=== PATIENT | female | born 1950 | race Caucasian/White ===

== ENCOUNTER 2016-10-23 16:10 | Emergency (ER) | payer MEDICARE, MEDICAID ==
[2016-10-23] MEDS ORDERED: Aspirin Low Dose CHEW TAB* 81 MG PO ONE (16:19)
--- NOTE | 2016-10-23 16:50 | RAD ---
INDICATION: Chest pain since radiating to the jaw and LEFT neck with worsening. Nausea today. Syncopal episode without fall. Cardiovascular disease and respiratory disease. COMPARISON: February 18, 2015 TECHNIQUE: Dual energy PA and routine lateral views of the chest were obtained. REPORT: Mild T7 compression fracture is unchanged compared with a CT from May 09, 2014. No new thoracic fracture evident. Clear lungs and pleural spaces. Negative for pneumothorax. Negative for cardiomegaly. LEFT anterior descending coronary artery stent. Unremarkable central pulmonary vasculature and mediastinal contours. IMPRESSION: No evidence for acute intrathoracic disease.
[2016-10-23 17:03] LABS: Hematocrit 44 % (35-47); Hemoglobin 14.6 g/dl (12.0-16.0); Mean Corpuscular HGB Conc 33 g/dl (31-36); Mean Corpuscular Hemoglobin 32 pg (27-31); Mean Corpuscular Volume 96 fL (80-97); Mean Platelet Volume 8 um3 (7.4-10.4); Red Blood Count 4.57 10^6/ul (4.0-5.4); Red Cell Distribution Width 13 % (10.5-15); White Blood Count 8.8 10^3/ul (3.5-10.8)
[2016-10-23 17:19] LABS: Albumin 4.2 g/dL (3.2-5.2); BUN/Creatinine Ratio 8.9 (8-20); Calcium 9.5 mg/dL (8.6-10.3); EGFR African American 81.1 (>60); Globulin 2.9 g/dL (2-4); Magnesium 1.9 mg/dL (1.9-2.7); Potassium 3.5 mmol/L (3.5-5.0); Total Bilirubin 0.4 mg/dL (0.2-1.0); Total Protein 7.1 g/dL (6.4-8.9)
[2016-10-23 17:38] LABS: TSH (Thyroid Stimulating Horm) 2.3 mcIU/mL (0.34-5.60)
--- NOTE | 2016-10-23 21:27 | ED ---
Cory Patrick Karl, scribed for Royce Hardy MD on 10/23/16 at 1639 . HPI Chest Pain - HPI Summary HPI Summary: 66 y/o F ALTHEA presents c/o intermittent midsternal CP radiating to her back that began 2 days ago and has since worsened. Pt described the pain as a pressure pain. Pt stated that she felt the pressure pain increase and took NTG which helped alleviate her pain, but shortly after, she started sweating and lost consciousness. Pt stated that when she woke up she called and ambulance. Hx : 2 cardiac stents, HLD, CAD. - History of Current Complaint Time Seen by Provider: 10/23/16 16:11 Hx Obtained From: Patient Onset/Duration: Started Days Ago - 2, Atraumatic, Worse Since Timing: Intermittent Initial Severity: Moderate Current Severity: None Chest Pain Location: Mid Sternal Chest Pain Radiates: Yes Chest Pain Radiates To:: Back Character: Pressure/Squeezing Aggravating Factor(s): Nothing Alleviating Factor(s): NTG 123, EMS Tx Associated Signs and Symptoms: Positive: Chest Pain, Syncope, Diaphoresis - Allergy/Home Medications Allergies/Adverse Reactions: Allergies Allergy/AdvReac Type Severity Reaction Status Date / Time Hydrocodone Allergy Severe Rash Verified 07/14/16 10:39 Hydromorphone [From Dilaudid] Allergy Severe Rash Verified 07/14/16 10:39 Statins Allergy Severe Rash Verified 07/14/16 10:39 CI Pigment Blue 63 Allergy Intermediate See Comment Verified 07/14/16 10:39 [From Cymbalta] Duloxetine [From Cymbalta] Allergy Intermediate See Comment Verified 07/14/16 10 :39 Fluoxetine [From Prozac] Allergy Intermediate Itching Verified 07/14/16 10:39 Oxycodone Allergy Intermediate Rash And Verified 07/14/16 10:39 Itching Lactose Intolerance (GI) Allergy GI Upset Verified 07/14/16 10:39 Paroxetine [From Paxil] Allergy Hives Verified 07/14/16 10:39 PMH/Surg Hx/FS Hx/Imm Hx Endocrine/Hematology History: Reports: Hx Thyroid Disease - hypothyroid Denies: Hx Diabetes Cardiovascular History: Reports: Hx Angina, Hx Coronary Artery Disease - 2 STENT IN LAD 2011, Hx Hypercholesterolemia, Hx Hypertension - ON MEDS PT. STATES CONTROLLED, Other Cardiovascular Problems/Disorders - CAD Respiratory History: Reports: Hx Asthma - ON INHALERS, Hx Sleep Apnea Denies: Hx Chronic Obstructive Pulmonary Disease (COPD) GI History: Reports: Hx Diverticulosis, Hx Gastroesophageal Reflux Disease - ON MEDS STATES DOESN'T HELP MUCH, Hx Irritable Bowel, Other GI Disorders - Hx diverticulitis Denies: Hx Ulcer History: Reports: Hx Kidney Stones - ONE TIME, Other Problems/Disorders - Hx frequent bladder infections Denies: Hx Renal Disease Musculoskeletal History: Reports: Hx Fibromyalgia, Other Musculoskeletal History - CRUSHED THORACIC VERTEBRAE- PER PT FIBROMAYALGIA Sensory History: Reports: Hx Cataracts - BILAT, Hx Contacts or Glasses - GLASSES Denies: Hx Hearing Aid Opthamlomology History: Reports: Hx Cataracts - BILAT, Hx Contacts or Glasses - GLASSES Neurological History: Reports: Hx Migraine - RARELY- ON TOPOMAX, Other Neuro Impairments/Disorders - fibromyalgia, BIPOLAR, PTSD, RECENT LYME DX Psychiatric History: Reports: Hx Anxiety, Hx Depression, Hx Post Traumatic Stress Disorder, Hx Bipolar Disorder - Surgical History Surgery Procedure, Year, and Place: tubal ligation 1978. CARDIAC STENT X 1 2011 [facility] [place]. cardiac stents X1 2010 [facility] Hx Anesthesia Reactions: No Infectious Disease History: Denies: Hx Clostridium Difficile, Hx Hepatitis, Hx Human Immunodeficiency Virus (HIV), Hx of Known/Suspected MRSA, Hx Shingles, Hx Tuberculosis, Hx Known/ Suspected VRE, Hx Known/Suspected VRSA, History Other Infectious Disease, Traveled Outside the [place] in Last 30 Days - Family History Known Family History: Positive: Cardiac Disease - mother, Diabetes - mother - Social History Alcohol Use: Rare Alcohol Amount: BEER X 3 YEAR Substance Use Type: Reports: Marijuana Substance Use Comment - Amount & Last Used: Once to twice per day Smoking Status (MU): Never Smoked Tobacco Have You Smoked in the Last Year: No Review of Systems Positive: Skin Diaphoresis Eyes: Negative ENT: Negative Positive: Chest Pain Respiratory: Negative Gastrointestinal: Negative Genitourinary: Negative Musculoskeletal: Negative Skin: Negative Positive: Syncope Psychological: Normal All Other Systems Reviewed And Are Negative: Yes Physical Exam - Summary Physical Exam Summary: VITAL SIGNS: Reviewed. GENERAL: Patient is an obese female who is lying comfortable in the stretcher. Patient is not in any acute respiratory distress. HEAD AND FACE: No signs of trauma. No ecchymosis, hematomas or skull depressions. No sinus tenderness. EYES: PERRLA, EOMI x 2, No injected conjunctiva, no nystagmus. EARS: Hearing grossly intact. Ear canals and tympanic membranes are within normal limits. MOUTH: Oropharynx within normal limits. NECK: Supple, trachea is midline, no adenopathy, no JVD, no carotid bruit, no c- spine tenderness, neck with full ROM. CHEST: Symmetric, no tenderness at palpation LUNGS: Clear to auscultation bilaterally. No wheezing or crackles. CVS: Regular rate and rhythm, S1 and S2 present, no murmurs or gallops appreciated. ABDOMEN: Soft, non-tender. No signs of distention. No rebound no guarding, and no masses palpated. Bowel sounds are normal. EXTREMITIES: FROM in all major joints, no edema, no cyanosis or clubbing. NEURO: Alert and oriented x 3. No acute neurological deficits. Speech is normal and follows commands. SKIN: Dry and warm Triage Information Reviewed: Yes Vital Signs On Initial Exam: Initial Vitals Temp Pulse Resp BP Pulse Ox 98.2 F 65 16 156/103 97 10/23/16 16:19 10/23/16 16:19 10/23/16 16:19 10/23/16 16:19 10/23/16 16:19 Vital Signs Reviewed: Yes Diagnostics - Vital Signs Vital Signs Temp Pulse Resp BP Pulse Ox 10/23/16 18:00 57 9 119/57 97 10/23/16 17:30 61 9 135/55 97 10/23/16 17:00 56 13 103/77 98 10/23/16 16:41 61 142/80 97 10/23/16 16:28 59 98 10/23/16 16:26 140/73 10/23/16 16:19 98.2 F 65 16 156/103 97 - Laboratory Lab Results: Lab Results 10/23/16 10/23/16 10/23/16 Range/Units 16:45 16:45 16:45 WBC 8.8 (3.5-10.8) 10^3/ul RBC 4.57 (4.0-5.4) 10^6/ul Hgb 14.6 (12.0-16.0) g/dl Hct 44 (35-47) % MCV 96 (80-97) fL MCH 32 H (27-31) pg MCHC 33 (31-36) g/dl RDW 13 (10.5-15) % Plt Count 276 (150-450) 10^3/ul MPV 8 (7.4-10.4) um3 Neut % (Auto) 59.1 (38-83) % Lymph % (Auto) 29.5 (25-47) % [place] % (Auto) 7.0 (1-9) % Eos % (Auto) 2.5 (0-6) % Baso % (Auto) 1.9 (0-2) % Absolute Neuts (auto) 5.2 (1.5-7.7) 10^3/ul Absolute Lymphs (auto) 2.6 (1.0-4.8) 10^3/ul Absolute Monos (auto) 0.6 (0-0.8) 10^3/ul Absolute Eos (auto) 0.2 (0-0.6) 10^3/ul Absolute Basos (auto) 0.2 (0-0.2) 10^3/ul Absolute Nucleated RBC 0 10^3/ul Nucleated RBC % 0 Sodium 137 (133-145) mmol/L Potassium 3.5 (3.5-5.0) mmol/L Chloride 109 (101-111) mmol/L Carbon Dioxide 23 (22-32) mmol/L Anion Gap 5 (2-11) mmol/L BUN 8 (6-24) mg/dL Creatinine 0.90 (0.51-0.95) mg/dL Est GFR ( Amer) 81.1 (>60) Est GFR (Non-Af Amer) 63.0 (>60) BUN/Creatinine Ratio 8.9 (8-20) Glucose 118 H (70-100) mg/dL Calcium 9.5 (8.6-10.3) mg/dL Magnesium 1.9 (1.9-2.7) mg/dL Total Bilirubin 0.40 (0.2-1.0) mg/dL AST 15 (13-39) U/L ALT 16 (7-52) U/L Alkaline Phosphatase 98 (34-104) U/L CK-MB (CK-2) 2.1 (0.6-6.3) ng/mL Troponin I 0.00 (<0.04) ng/mL B-Natriuretic Peptide 54 ( - 100) pg/mL Total Protein 7.1 (6.4-8.9) g/dL Albumin 4.2 (3.2-5.2) g/dL Globulin 2.9 (2-4) g/dL Albumin/Globulin Ratio 1.4 (1-3) TSH 2.30 (0.34-5.60) mcIU/mL Result Diagrams: 10/23/16 16:45 10/23/16 16:45 Lab Statement: Any lab studies that have been ordered have been reviewed, and results considered in the medical decision making process. - Radiology CXR Xray Interpretation: No Acute Changes Radiology Interpretation Completed By: Radiologist - IMPRESSION: No evidence for acute intrathoracic disease. - EKG 16:17 EKG Interpretation: NSR at 65 bpm, No ST elevations Chest Pain Course/Dx - Course Assessment/Plan: 66 y/o F BIBA presents c/o intermittent midsternal CP radiating to her back that began 2 days ago and has since worsened. Pt described the pain as a pressure pain. Pt stated that she felt the pressure pain increase and took NTG which helped alleviate her pain, but shortly after, she started sweating and lost consciousness. Pt stated that when she woke up she called and ambulance. Hx: 2 cardiac stents, HLD, CAD. Blood work WNL except for increased glucose of 118. Troponin #1: 0.00. Troponin #2 after 4 hours is: 0.01. Likely the source of the chest pain is not associated to an ACS. She is not tachycardic nor hypoxic therefore less likely a PE. Her chest pain not present since arrival therefore less likely a dissection. Chest pain is reproducible therefore likely chest wall pain. EKG shows a normal sinus rhythm w/o ST elevations. EKG is similar to a previous EKG done on 02/18/15. CXR impression: No acute pathology. I discussed all the findings and test results with the patient. Patient was instructed to return to the emergency room immediately if any of the symptoms return or worsens. Plan of care was discussed with the patient and understands and agrees. All questions were answered at patient satisfaction. There were no further complaints or concerns. P/E: Lungs: CTA B/L. Good air exchange. No wheezing or crackles heard. CVS: S1 and S2 present. No murmurs appreciated. Patient is alert and oriented x 3. Patient is hemodynamically stable. Patient will be discharged home with follow up PMD in the next 2-3 days - Chest Pain Differential Diagnosis/HQI/PQRI: ACS, Angina, CHF, Chest Wall, GI Disease, Lower Respiratory Infection - Diagnoses Provider Diagnoses: Atypical chest pain Discharge - Discharge Plan Condition: Stable Disposition: HOME Patient Education Materials: Chest Pain (ED) The documentation as recorded by the Cory benitez Karl accurately reflects the service I personally performed and the decisions made by Antony cast Walter, MD.
[2016-10-23 21:32] VITALS: BP 118/60
== END 2016-10-23 21:43 | disposition home or self-care (01) ==
LOC: ED 16:10
DX: R07.89 Other chest pain (principal); R55 Syncope and collapse; R61 Generalized hyperhidrosis
CPT/HCPCS: 36415; 71020; 80053; 82553; 83735; 83880; 84443; 84484; 85025; 93005; 99285; A9270-GY

== ENCOUNTER 2017-05-22 12:05 | Emergency (ER) | payer MEDICARE, MEDICAID ==
[2017-05-22] MEDS ORDERED: Cyclobenzaprine TAB* 10 MG PO ONE (14:17)
[2017-05-22] MEDS ORDERED: Morphine TAB Extended Release (*) 30 MG TAB.ER PO ONE ×2 (14:18→16:00)
[2017-05-22 15:10] LABS: Hematocrit 41 % (35-47); Hemoglobin 14.1 g/dl (12.0-16.0); Mean Corpuscular HGB Conc 34 g/dl (31-36); Mean Corpuscular Hemoglobin 33 pg (27-31); Mean Corpuscular Volume 95 fL (80-97); Mean Platelet Volume 7 um3 (7.4-10.4); Red Blood Count 4.33 10^6/ul (4.0-5.4); Red Cell Distribution Width 13 % (10.5-15); White Blood Count 7.4 10^3/ul (3.5-10.8)
[2017-05-22 15:22] LABS: Urine Bilirubin Negative (Negative); Urine Glucose Negative (Negative); Urine Nitrite Negative (Negative)
[2017-05-22 16:10] LABS: Albumin 3.9 g/dL (3.2-5.2); BUN/Creatinine Ratio 9.6 (8-20); Calcium 9.5 mg/dL (8.6-10.3); EGFR Non-African American 69.2 (>60); Potassium 3.5 mmol/L (3.5-5.0); Total Bilirubin 0.5 mg/dL (0.2-1.0); Total Protein 6.9 g/dL (6.4-8.9)
--- NOTE | 2017-05-22 16:36 | RAD ---
INDICATION: Back and right flank pain. COMPARISON: Comparison is made with a prior CT of the abdomen and pelvis from March 21, 2015. TECHNIQUE: A CT scan of the abdomen and pelvis was performed without intravenous or oral contrast. Contiguous axial sections were obtained from the lung bases through the symphysis pubis. Images were reconstructed in the coronal and sagittal planes. FINDINGS: The lung bases are clear. No pleural effusion is present. The liver and spleen are normal in size without significant focal abnormality on this noncontrast study. The gallbladder appears distended and similar to the prior exam. No calcified gallstones are seen. The pancreas appears to be within normal limits. The adrenal glands and kidneys are normal in size. No renal calculi or hydronephrosis is seen. No ureteral or bladder calculi are seen. The aorta is normal in caliber with mild calcific plaque present. No significant enlarged retroperitoneal lymph nodes are seen. There is a small hiatal hernia present. The stomach, small and large bowel appear nondistended. The appendix is within normal limits. There is mild to moderate descending and sigmoid diverticulosis. There is no evidence for diverticulitis or colitis. There is a small periumbilical hernia containing fat. The uterus is anteverted and normal in size. No free intraperitoneal air or fluid is seen. There is a mild subacute compression fracture of the superior endplate of the L1 vertebral body with loss of height of approximately 15%. No retropulsion is present. The posterior elements appear intact. No other focal osseous abnormalities are seen. IMPRESSION: THERE IS A MILD SUBACUTE COMPRESSION FRACTURE OF THE SUPERIOR ENDPLATE OF THE L1 VERTEBRAL BODY.
--- NOTE | 2017-05-22 16:52 | ED ---
Ying Patrick Edward, scribed for Sondra Leeanuel on 05/22/17 at 1351 . Back Pain - HPI Summary HPI Summary: 66 y/o female presents to the ED c/o sudden onset, severe back pain s/p lifting a heavy bag four days ago. The pain is located in the lower back near the waist. The pain is aggravated with standing and sitting for prolonged periods. The pain is alleviated to a 3/10 in severity when the pt lies on her side. Pt uses marijuana. Denies urinary symptoms. Pt took 2 codeines an hour [employer]. - History of Current Complaint Chief Complaint: EDBackInjuryPain Stated Complaint: BACK PAIN Time Seen by Provider: 05/22/17 13:50 Hx Obtained From: Patient Onset/Duration: Sudden Onset, Lasting Days, Still Present Onset/Duration: Started Days Ago Timing: Constant Back Pain Location: Is Discrete @ - Lower back Severity Currently: Severe Pain Intensity: 8 Pain Scale Used: 0-10 Numeric Aggravating Symptom(s): Movement - Standing and sitting for prolonged periods, Bending Alleviating Symptom(s): Position - Lying on her side Associated Signs And Symptoms: Positive: Negative. Negative: Abdominal Pain - Allergies/Home Medications Allergies/Adverse Reactions: Allergies Allergy/AdvReac Type Severity Reaction Status Date / Time Hydrocodone Allergy Severe Rash Verified 07/14/16 10:39 Hydromorphone [From Dilaudid] Allergy Severe Rash Verified 07/14/16 10:39 Statins Allergy Severe Rash Verified 07/14/16 10:39 CI Pigment Blue 63 Allergy Intermediate See Comment Verified 07/14/16 10:39 [From Cymbalta] Duloxetine [From Cymbalta] Allergy Intermediate See Comment Verified 07/14/16 10 :39 Fluoxetine [From Prozac] Allergy Intermediate Itching Verified 07/14/16 10:39 Oxycodone Allergy Intermediate Rash And Verified 07/14/16 10:39 Itching Lactose Intolerance (GI) Allergy GI Upset Verified 07/14/16 10:39 Paroxetine [From Paxil] Allergy Hives Verified 07/14/16 10:39 PMH/Surg Hx/FS Hx/Imm Hx Previously Healthy: No Endocrine/Hematology History: Reports: Hx Thyroid Disease - hypothyroid Denies: Hx Diabetes Cardiovascular History: Reports: Hx Angina, Hx Coronary Artery Disease - 2 STENT IN LAD 2011, Hx Hypercholesterolemia, Hx Hypertension - ON MEDS PT. STATES CONTROLLED, Other Cardiovascular Problems/Disorders - CAD Respiratory History: Reports: Hx Asthma - ON INHALERS, Hx Sleep Apnea Denies: Hx Chronic Obstructive Pulmonary Disease (COPD) GI History: Reports: Hx Diverticulosis, Hx Gastroesophageal Reflux Disease - ON MEDS STATES DOESN'T HELP MUCH, Hx Irritable Bowel, Other GI Disorders - Hx diverticulitis Denies: Hx Ulcer History: Reports: Hx Kidney Stones - ONE TIME, Other Problems/Disorders - Hx frequent bladder infections Denies: Hx Renal Disease Musculoskeletal History: Reports: Hx Fibromyalgia, Other Musculoskeletal History - CRUSHED THORACIC VERTEBRAE- PER PT FIBROMAYALGIA Sensory History: Reports: Hx Cataracts - BILAT, Hx Contacts or Glasses - GLASSES Denies: Hx Hearing Aid Opthamlomology History: Reports: Hx Cataracts - BILAT, Hx Contacts or Glasses - GLASSES Neurological History: Reports: Hx Migraine - RARELY- ON TOPOMAX, Other Neuro Impairments/Disorders - fibromyalgia, BIPOLAR, PTSD, RECENT LYME DX Psychiatric History: Reports: Hx Anxiety, Hx Depression, Hx Post Traumatic Stress Disorder, Hx Bipolar Disorder - Surgical History Surgery Procedure, Year, and Place: tubal ligation 1978. [place]IAC [place] X 1 [place] [facility] [place] X1 2010 [facility] Hx Anesthesia Reactions: No Infectious Disease History: No Infectious Disease History: Denies: Hx Clostridium Difficile, Hx Hepatitis, Hx Human Immunodeficiency Virus (HIV), Hx of Known/Suspected MRSA, Hx Shingles, Hx Tuberculosis, Hx Known/ Suspected VRE, Hx Known/Suspected VRSA, History Other Infectious Disease, Traveled Outside the [place] in Last 30 Days - Family History Known Family History: Positive: Cardiac Disease - mother, Diabetes - mother - Social History Alcohol Use: Rare Alcohol Amount: BEER X 3 YEAR Hx Substance Use: Yes Substance Use Type: Reports: Marijuana Substance Use Comment - Amount & Last Used: Once to twice per day Hx Tobacco Use: No Smoking Status (MU): Never Smoked Tobacco Have You Smoked in the Last Year: No Review of Systems Constitutional: Negative Eyes: Negative ENT: Negative Cardiovascular: Negative Respiratory: Negative Gastrointestinal: Negative Genitourinary: Negative Positive: Myalgia - back pain Skin: Negative Neurological: Negative Psychological: Normal All Other Systems Reviewed And Are Negative: Yes Physical Exam Triage Information Reviewed: Yes Vital Signs On Initial Exam: Initial Vitals Temp Pulse Resp BP Pulse Ox 97.4 F 62 17 136/104 99 05/22/17 12:06 05/22/17 12:06 05/22/17 12:06 05/22/17 12:06 05/22/17 12:06 Vital Signs Reviewed: Yes Appearance: Positive: Well-Appearing, No Pain Distress Skin: Positive: Warm, Skin Color Reflects Adequate Perfusion, Dry Head/Face: Positive: Normal Head/Face Inspection Eyes: Positive: EOMI, NANCY ENT: Positive: Normal ENT inspection Neck: Positive: Supple, Nontender Respiratory/Lung Sounds: Positive: Clear to Auscultation, Breath Sounds Present Cardiovascular: Positive: RRR, Pulses are Symmetrical in both Upper and Lower Extremities Abdomen Description: Positive: Nontender, Soft Bowel Sounds: Positive: Present Musculoskeletal: Positive: Strength/ROM Intact, Pain @ - Tenderness over the lumbar spine Neurological: Positive: Normal, Sensory/Motor Intact, Alert, Oriented to Person Place, Time Diagnostics - Vital Signs Vital Signs Temp Pulse Resp BP Pulse Ox 05/22/17 12:06 97.4 F 62 17 136/104 99 - Laboratory Result Diagrams: 05/22/17 14:50 05/22/17 14:50 Lab Statement: Any lab studies that have been ordered have been reviewed, and results considered in the medical decision making process. - CT ABD/PEL CT CT Interpretation: Positive (See Comments) - THERE IS A MILD SUBACUTE COMPRESSION FRACTURE OF THE SUPERIOR ENDPLATE OF THE L1 VERTEBRAL BODY. CT Interpretation Completed By: Radiologist Re-Evaluation - Re-Evaluation 1 Re-Evaluation Time: 16:40 Comment: Discussed CT results. Pt does not want to stay. Pt will be d/c with f/ u with [facility]. Back Pain Course/Dx - Course Assessment/Plan: 66 y/o female presents to the ED c/o sudden onset, severe back pain s/p lifting a heavy bag four days ago. The pain is located in the lower back near the waist. The pain is aggravated with standing and sitting for prolonged periods. The pain is alleviated to a 3/10 in severity when the pt lies on her side. Pt uses marijuana. Denies urinary symptoms. Pt took 2 codeines an hour [employer]. ABD/PEL CT SHOWS THERE IS A MILD SUBACUTE COMPRESSION FRACTURE OF THE SUPERIOR ENDPLATE OF THE L1 VERTEBRAL BODY. Pt does not want to stay in the ED. Pt will be d/c home with f/u with Dr. Das (neurosurgery). - Diagnoses Provider Diagnoses: back pain, L1 vertebral fracture Discharge - Discharge Plan Condition: Stable Disposition: HOME Patient Education Materials: Back Pain (ED), Vertebral Compression Fracture (ED ) Referrals: Brandon Das MD [Medical Doctor] - 3 Days (PLEASE F/U IN 2-3 DAYS) The documentation as recorded by the Ying benitez Edward accurately reflects the service I personally performed and the decisions made by Jesus cast Emmanuel.
[2017-05-22 17:05] VITALS: BP 140/95
== END 2017-05-22 17:05 | disposition home or self-care (01) ==
LOC: ED 12:05
DX: M54.5 Low back pain (principal); S32.019A Unspecified fracture of first lumbar vertebra, initial encounter for closed fracture; X50.0XXA Overexertion from strenuous movement or load, initial encounter; Y93.9 Activity, unspecified; Y92.9 Unspecified place or not applicable
CPT/HCPCS: 36415; 74176; 80053; 81003; 83690; 85025; 99282; A9270-GY

== ENCOUNTER 2018-12-05 19:05 | Emergency (ER) | payer MEDICARE, MEDICAID ==
--- NOTE | 2018-12-05 19:50 | ED ---
HPI Chest Pain - HPI Summary HPI Summary: This patient is a 68 year old F brought in by EMS to [facility] with a chief complaint of left-sided chest pressure that radiates down both her arms since this morning. She had picked up something heavy on 12/03/18 and felt the same left-sided chest pressure radiating down both arms. Patient reports that resting for the rest of the day alleviated the pressure. However, when she went to warp picker something this morning, she had the same symptoms. Patient reports SOB, nausea (only 12/01/18-12/03/18), and vomiting (only 12/01/18-12/03/18). Patient takes medication for blood pressure, blood thinners (for her two stents in her heart), and acetaminophen/codeine (for fibromyalgia). - History of Current Complaint Chief Complaint: EDChestWallPain Time Seen by Provider: 12/05/18 19:19 Hx Obtained From: Patient Onset/Duration: Started Hours Ago Timing: Intermittent, Lasting Hours Initial Severity: Mild Current Severity: None Pain Intensity: 0 Pain Scale Used: 0-10 Numeric Chest Pain Location: Left Anterior Chest Pain Radiates: Yes Chest Pain Radiates To:: Arm - Both arms Character: Pressure/Squeezing Aggravating Factor(s): Nothing Alleviating Factor(s): Rest Associated Signs and Symptoms: Positive: Chest Pain - Chest pressure, Shortness of Breath, Nausea - only 12/01/18-12/03/18, Vomiting - only 12/01/18-12/03/18 - Allergy/Home Medications Allergies/Adverse Reactions: Allergies Allergy/AdvReac Type Severity Reaction Status Date / Time MS Hydrocodone [Hydrocodone] Allergy Severe Rash Verified 12/05/18 20:17 MS Hydromorphone Allergy Severe Rash Verified 12/05/18 20:17 [From Dilaudid] MS Statins [Statins] Allergy Severe Rash Verified 12/05/18 20:17 MS CI Pigment Blue 63 Allergy Intermediate See Comment Verified 12/05/18 20:17 [From Cymbalta] MS Duloxetine [From Cymbalta] Allergy Intermediate See Comment Verified 20:17 MS Fluoxetine [From Prozac] Allergy Intermediate Itching Verified 12/05/18 20:17 MS Oxycodone [Oxycodone] Allergy Intermediate Rash And Verified 12/05/18 20:17 Itching MS Lactose Intolerance (GI) Allergy GI Upset Verified 12/05/18 20:17 [Lactose Intolerance (GI)] MS Paroxetine [From Paxil] Allergy Hives Verified 12/05/18 20:17 PMH/Surg Hx/FS Hx/Imm Hx Endocrine/Hematology History: Reports: Hx Thyroid Disease - hypothyroid Denies: Hx Diabetes Cardiovascular History: Reports: Hx Angina, Hx Coronary Artery Disease - 2 STENT IN LAD 2011, Hx Hypercholesterolemia, Hx Hypertension - ON MEDS PT. STATES CONTROLLED, Other Cardiovascular Problems/Disorders - CAD Respiratory History: Reports: Hx Asthma - ON INHALERS, Hx Sleep Apnea Denies: Hx Chronic Obstructive Pulmonary Disease (COPD) GI History: Reports: Hx Diverticulosis, Hx Gastroesophageal Reflux Disease - ON MEDS STATES DOESN'T HELP MUCH, Hx Irritable Bowel, Other GI Disorders - Hx diverticulitis Denies: Hx Ulcer History: Reports: Hx Kidney Stones - ONE TIME, Other Problems/Disorders - Hx frequent bladder infections Denies: Hx Renal Disease Musculoskeletal History: Reports: Hx Fibromyalgia, Other Musculoskeletal History - CRUSHED THORACIC VERTEBRAE- PER PT FIBROMAYALGIA Sensory History: Reports: Hx Cataracts - BILAT, Hx Contacts or Glasses - GLASSES Denies: Hx Hearing Aid Opthamlomology History: Reports: Hx Cataracts - BILAT, Hx Contacts or Glasses - GLASSES Neurological History: Reports: Hx Migraine - RARELY- ON TOPOMAX, Other Neuro Impairments/Disorders - fibromyalgia, BIPOLAR, PTSD, RECENT LYME DX Psychiatric History: Reports: Hx Anxiety, Hx Depression, Hx Post Traumatic Stress Disorder, Hx Bipolar Disorder - Surgical History Surgery Procedure, Year, and Place: tubal ligation 1978. CARDIAC STENT X 1 2011 [facility] [place]. cardiac stents X1 2010 [facility] Hx Anesthesia Reactions: No - Immunization History Date of Tetanus Vaccine: UNKNOWN Date of Influenza Vaccine: UTD Infectious Disease History: No Infectious Disease History: Denies: Hx Clostridium Difficile, Hx Hepatitis, Hx Human Immunodeficiency Virus (HIV), Hx of Known/Suspected MRSA, Hx Shingles, Hx Tuberculosis, Hx Known/ Suspected VRE, Hx Known/Suspected VRSA, History Other Infectious Disease, Traveled Outside the [place] in Last 30 Days - Family History Known Family History: Positive: Cardiac Disease - mother, Diabetes - mother - Social History Alcohol Use: Rare Alcohol Amount: BEER X 3 YEAR Hx Substance Use: Yes Substance Use Type: Reports: Marijuana Substance Use Comment - Amount & Last Used: Once to twice per day Hx Tobacco Use: No Smoking Status (MU): Never Smoked Tobacco Have You Smoked in the Last Year: No Review of Systems Positive: Chest Pain - Left-sided chest pressure that radiates down both her arms Positive: Shortness Of Breath Positive: Vomiting - only 12/01/18-12/03/18, Nausea - only 12/01/18-12/03/18 All Other Systems Reviewed And Are Negative: Yes Physical Exam - Summary Physical Exam Summary: VITAL SIGNS: Reviewed. GENERAL: Patient is a well-developed and nourished FEMALE who is lying comfortable in the stretcher. Patient is not in any acute respiratory distress. HEAD AND FACE: No signs of trauma. No ecchymosis, hematomas or skull depressions. No sinus tenderness. EYES: PERRLA, EOMI x 2, No injected conjunctiva, no nystagmus. EARS: Hearing grossly intact. Ear canals and tympanic membranes are within normal limits. MOUTH: Oropharynx within normal limits. NECK: Supple, trachea is midline, no adenopathy, no JVD, no carotid bruit, no c- spine tenderness, neck with full ROM. CHEST: Symmetric, no tenderness at palpation LUNGS: Clear to auscultation bilaterally. No wheezing or crackles. CVS: Regular rate and rhythm, S1 and S2 present, no murmurs or gallops appreciated. ABDOMEN: Soft, non-tender. No signs of distention. No rebound no guarding, and no masses palpated. Bowel sounds are normal. EXTREMITIES: FROM in all major joints, no edema, no cyanosis or clubbing. NEURO: Alert and oriented x 3. No acute neurological deficits. Speech is normal and follows commands. SKIN: Dry and warm Triage Information Reviewed: Yes Vital Signs On Initial Exam: Initial Vitals Temp Pulse Resp BP Pulse Ox 98.4 F 50 20 174/87 98 12/05/18 19:11 12/05/18 19:11 12/05/18 19:11 12/05/18 19:11 12/05/18 19:11 Vital Signs Reviewed: Yes Diagnostics - Vital Signs Vital Signs Temp Pulse Resp BP Pulse Ox 12/05/18 19:16 60 21 99 12/05/18 19:15 51 20 174/87 97 12/05/18 19:11 98.4 F 50 20 174/87 98 - Laboratory Result Diagrams: 12/05/18 20:07 12/05/18 20:07 Lab Statement: Any lab studies that have been ordered have been reviewed, and results considered in the medical decision making process. - Radiology Chest X-Ray Radiology Interpretation Completed By: ED Physician Summary of Radiographic Findings: 20:28. No acute process. Pending official report. - EKG 20:10 Cardiac Rate: Bradycardia - 55 BPM EKG Rhythm: Sinus Rhythm Summary of EKG Findings: Non-specific T-wave changes Chest Pain Course/Dx - Course Course Of Treatment: This patient is a 68 year old F brought in by EMS to [facility] with a chief complaint of left-sided chest pressure that radiates down both her arms since this morning. Chest X-Ray showed no acute processes. EKG showed 55 BPM bradychardia, otherwise normal. Patient was d/c with a dx of atypical chest pain and instructions to get a cardiac stress test as an outpatient as soon as possible. - Diagnoses Provider Diagnoses: Atypical chest pain Discharge - Sign-Out/Discharge Documenting (check all that apply): Patient Departure - D/C home Patient Received Moderate/Deep Sedation with Procedure: No - Discharge Plan Condition: Stable Disposition: HOME Patient Education Materials: Chest Pain (ED) Referrals: Juan David Rust MD [Primary Care Provider] - 2 Days Additional Instructions: RETURN TO THE EMERGENCY DEPARTMENT FOR CHANGING OR WORSENING SYMPTOMS. FOLLOW UP WITH PCP IN 1-2 DAYS. Get a cardiac stress test as an outpatient as soon as possible. - Attestation Statements Document Initiated by Scribe: Yes Documenting Scribe: Facundo Jara Provider For Whom Scribe is Documenting (Include Credential): Carmen Lobo MD Scribe Attestation: Facundo Patrick scribed for Carmen Lobo MD on 12/05/18 at 2330. Status of Scribe Document: Ready
[2018-12-05 20:15] LABS: ABS Basophils 0.1 10^3/ul (0-0.2); ABS Eosinophils 0.2 10^3/ul (0-0.6); ABS Lymphocytes 2.8 10^3/ul (1.0-4.8); ABS Monocytes 0.6 10^3/ul (0-0.8); ABS Neutrophils 7.3 10^3/ul (1.5-7.7); ABS Nucleated RBC 0 10^3/ul; Eosinophil % 1.5 %; Hematocrit 44 % (33-41); Hemoglobin 14.5 g/dL (12.0-16.0); Lymphocyte % 25.3 %; Mean Corpuscular HGB Conc 33 g/dL (31-36); Mean Corpuscular Hemoglobin 32 pg (27-31); Mean Corpuscular Volume 97 fL (80-97); Mean Platelet Volume 7.3 fL (7.4-10.4); Nucleated Red Blood Cells % 0.1; Platelet Count 303 10^3/uL (150-450); Red Blood Count 4.51 10^6 /uL (3.70-4.87); Red Cell Distribution Width 13 % (10.5-15)
[2018-12-05 20:24] LABS: Activated Partial Thrombo Time 34.5 seconds (26.0-36.3); INR 0.87 (0.77-1.02)
[2018-12-05 20:36] LABS: Troponin I 0.01 ng/mL (<0.04)
[2018-12-05 20:41] LABS: Albumin 4.2 g/dL (3.2-5.2); Albumin/Globulin Ratio 1.6 (1-3); Calcium 9.3 mg/dL (8.6-10.3); EGFR African American 83.2 (>60); EGFR Non-African American 68.8 (>60); Globulin 2.7 g/dL (2-4); Potassium 4.1 mmol/L (3.5-5.0); Total Bilirubin 0.4 mg/dL (0.2-1.0); Total Protein 6.9 g/dL (6.4-8.9)
[2018-12-05 23:30] VITALS: BP 123/64
== END 2018-12-05 23:29 | disposition home or self-care (01) ==
LOC: ED 19:05
DX: R07.89 Other chest pain (principal); R06.02 Shortness of breath; R11.10 Vomiting, unspecified; I25.10 Atherosclerotic heart disease of native coronary artery without angina pectoris; Z95.5 Presence of coronary angioplasty implant and graft
CPT/HCPCS: 36415; 71045; 80053; 83735; 83880; 84484; 85025; 85610; 85730; 93005; 99283

== ENCOUNTER → 2019-08-03 09:34 | Day surgery (SDC) | payer MEDICARE, MEDICAID ==
[~2019-08-03 09:34] MED LIST: Buffered Lidocaine 1% SYRIN* 1 ML/SYRINGE INTRADERM ONE; Lactated Ringers 1000 ML Bag* 1,000 ML IV SCH; Lidocaine 2% PF * 5 ML VIAL ONE; Midazolam* 1 MG/ML 2 ML VIAL (2 MG) ONE; Midazolam* 1 MG/ML 5 ML VIAL (5 MG) ONE; Ondansetron INJ* 2 MG/ML VIAL ONE; Propofol* 10 MG/ML 20 ML BTL ONE
[2019-08-03 19:59] VITALS: BP 177/83
--- NOTE | 2019-08-03 21:12 | PRO ---
CC: Juan David Rust MD * ESOPHAGOGASTRODUODENOSCOPY AND COLONOSCOPY REPORT: DATE OF PROCEDURE: 08/03/19 - [facility]IMARY [facility] PHYSICIAN: Juan David Rust MD INDICATION FOR PROCEDURE: Nausea, positive Cologuard. PROCEDURES PERFORMED: Complete esophagogastroduodenoscopy with biopsies and complete colonoscopy to the cecum with biopsy and cold snare polypectomy and Endoclip placement x3. MEDICATIONS GIVEN: Please see anesthesia service. DESCRIPTION OF PROCEDURE: After the EGD and colonoscopy procedures including the risks, benefits, and alternatives with the risks not limited to perforation , surgery, missed lesions, and/or were explained to the patient, written informed consent was obtained, IV medication was given, and a bite-block was placed between the teeth. The adult Olympus gastroscope was then inserted into the patient's oropharynx into the tubular esophagus. The Z-line was mildly variable less than a centimeter. This was biopsied to rule out reflux disease. The scope was advanced through the lower esophageal sphincter into the stomach. There was antral predominant gastritis. This was biopsied and CLOtested. On retroflexion, no significant hiatal hernia was appreciated. The scope was then advanced through the widely patent pylorus into duodenal bulb, C- loop, distal duodenum. These were normal in appearance. Given her symptomatology, biopsies were taken to rule out villous blunting. The scope was then removed from the patient. She tolerated procedure well. She was then rotated and given additional IV sedation medication. A rectal exam was performed. The rectal exam was unremarkable. The adult Olympus colonoscope was then inserted into the patient's rectum and advanced very carefully through the entirety of the colon into the cecal base. The cecal base was carefully inspected and normal in appearance. The quality of the preparation was fair with a lot of washing, but decent views were able to be obtained afterwards. The terminal ileal valve was identified and normal in appearance. Photograph was taken in the cecal cap. Over the next 20 minutes, the scope was carefully withdrawn inspecting the mucosa. In the ascending colon , four polyps removed with biopsy polypectomy in entirety. At the hepatic flexure, an additional polyp was removed with cold snare polypectomy. Given the patient's recent Plavix usage, a clip was placed prophylactically over this area with good effect. On further withdrawal, four polyps were removed with biopsy polypectomy in entirety in the transverse colon. In the descending colon , one additional polyp was removed with cold snare polypectomy. A clip was placed over this area as well and two additional small polyps were removed with biopsy polypectomy. Finally in the rectum, an additional polyp was removed with cold snare polypectomy and an additional Endoclip was placed over this area. On retroflexion, the views were grossly normal. The scope was then removed from the patient. She tolerated the procedure well. She returned to the recovery room in stable condition. IMPRESSION: 1. Complete esophagogastroduodenoscopy with biopsies. 2. Antral predominant gastritis, biopsied and CLOtested. 3. Mild GE junction variability. 4. Complete colonoscopy to the cecum. 5. Biopsy polypectomy x10 polyps. 6. Cold snare polypectomy x3 polyps. 7. Endoclip placement over the 3 cold snare polyp sites. 8. Recent Plavix usage. 9. Fair prep. RECOMMENDATIONS: The patient had 13 polyps today, which is the likely etiology of her positive Cologuard. In addition, she states that even though she was told to hold the Plavix for 5 days, she had only held it since Tuesday. New data shows that the polyps under 1 cm can be removed on Plavix as long as the bleeding site is watched and a clip placed over the area if necessary. Today, I placed 3 clips over 3 polyp sites with good effect. The remainder of the polypectomy sites had great hemostasis. Because of the number of polyps, I would recommend a repeat colonoscopy in 1 years' time with enhanced prep as well. In addition, she has antral predominant gastritis. This is likely from NSAID usage. We will try to minimize as much as necessary, however, she does need the aspirin for her coronary disease. May consider increasing omeprazole pending biopsy results. [id number]/[facility] #: [id number] [facility]
== END | disposition home or self-care (01) ==
LOC: OR 09:34
PROVIDERS: ATTEND Internal Medicine Gastroenterology
DX: K29.50 Unspecified chronic gastritis without bleeding (principal); R11.2 Nausea with vomiting, unspecified; K63.5 Polyp of colon; K59.00 Constipation, unspecified; M79.7 Fibromyalgia
CPT/HCPCS: 87077; 88305; 88342; J2250; J2405; J2704

== ENCOUNTER 2023-03-14 08:42 | Inpatient (IN) ==
[2023-03-14 09:35] LABS: ABS Basophils 0.1 10^3/uL (0.0-0.1); ABS Eosinophils 0.2 10^3/uL (0.0-0.5); ABS Lymphocytes 2.8 10^3/uL (1.0-4.8); ABS Monocytes 0.5 10^3/uL (0.0-0.9); ABS Neutrophils 5.8 10^3/uL (1.5-7.6); Eosinophil % 1.7 %; Hematocrit 37.8 % (35-45); Lymphocyte % 29.8 %; Mean Corpuscular Hemoglobin 31.9 pg (27-33); Mean Corpuscular Hgb Conc 34.5 g/dL (31-36); Mean Corpuscular Volume 92.7 fL (80-97); Mean Platelet Volume 7.6 fL (7.5-11.2); Platelet Count 300 10^3/uL (150-450); Red Blood Count 4.08 10^6/uL (3.63-4.92); White Blood Count 9.5 10^3/uL (3.8-11.8)
[2023-03-14 09:42] LABS: INR 1.02 (0.88-1.18)
[2023-03-14] MEDS ORDERED: Heparin 1,000 UNIT/ML 10 ml (10,000 UNITS) CATHLAB/DIALYSIS ONE (09:45)
[2023-03-14] MEDS ORDERED: Heparin 2 UNITS/ML 1000 mls 2,000 ML IV ONE (09:45)
[2023-03-14] MEDS ORDERED: Lidocaine 1% MPF 5 ML VIAL ONE (09:45)
[2023-03-14] MEDS ORDERED: VERAPAMIL 2.5 MG/ML 2 ML VIAL ** 5 mg/2 ml ONE (09:45)
[2023-03-14] MEDS ORDERED: nitroGLYCERIN DRIP 25,000 MCG/250 ML BTL ONE (09:45)
[2023-03-14] MEDS ORDERED: Midazolam 5 mg/5 ml VIAL 1 mg/ml 5 ml VIAL (5 mg) ONE (09:45)
[2023-03-14] MEDS ORDERED: Iohexol 350 (CONTRAST) 100 ML PAK IV ONE (09:46)
[2023-03-14 09:54] LABS: Calcium 9.2 mg/dL (8.6-10.3); Potassium 3.8 mmol/L (3.5-5.0); eGFR CKD-EPI 60.6 (>60)
[2023-03-14] MEDS ORDERED: Atropine 0.1 MG/ML 10 ml SYR (1 mg) ONE (10:16)
[2023-03-14] MEDS ORDERED: Bivalirudin 250 MG VIAL ONE (10:50)
[2023-03-14] MEDS ORDERED: Acetaminophen IV 1 GM/100ML 1,000 MG/100 ML BAG IV PRN (15:09)
[2023-03-14] MEDS ORDERED: Albuterol HFA INHALER 8 gm MDI INH PRN (15:10)
[2023-03-14] MEDS ORDERED: NS 0.9% 1000 ml BAG 500 ML IV ONE (15:45)
[2023-03-14 18:06] VITALS: BP 185/102
[2023-03-15] MEDS ORDERED: Fluticasone NASAL SPRAY 50MCG 16 gm SPRAY BTL BOTH NARES SCH (09:00)
== END 2023-03-14 17:30 | disposition home or self-care (01) | DRG 247 ==
LOC: CHICATH 08:42 → ICU 12:09